=== PATIENT | female | born 2000 | race Hispanic/Latino ===

== ENCOUNTER 2021-05-30 09:02 | Emergency (ER) | payer OTHER ==
[~2021-05-30] VITALS: Ht 157.5 cm; Wt 54.2 kg
[2021-05-30] MEDS ORDERED: ATOM80CA6 PO (09:13)
[2021-05-30 10:40] LABS: RSV AMPLIFICATION NEGATIVE (NEGATIVE)
[2021-05-30] MEDS ORDERED: OSEL75CA PO (11:26)
[2021-05-30 11:32] VITALS: BP 117/69
== END 2021-05-30 11:47 | disposition home or self-care (01) ==
LOC: M ED 09:02
DX: J09.X2 Influenza due to identified novel influenza A virus with other respiratory manifestations (principal)

== ENCOUNTER 2021-07-21 10:00 | Inpatient (IN) | payer OTHER ==
[~2021-07-21] VITALS: Ht 154.9 cm; Wt 52.7 kg
[2021-07-21] MEDS: PRENATAL VITAMINS CHEWABLE TABLET PO SCH (09:00)
[~2021-07-21 10:00] MED LIST: ATOM80CA6 PO; OSEL75CA PO
[2021-07-21 10:46] LABS: BASO # 0.1 10^3/uL (0.0-0.2); BASO % 0.6 % (0.0-1.0); EOS # 0.1 10^3/uL (0.0-0.5); EOS % 0.9 % (0.0-3.0); HEMATOCRIT 39.7 % (36.0-47.0); HEMOGLOBIN 13.3 g/dl (12.0-15.5); LYMPH # 0.9 10^3/uL (1.5-5.0); LYMPH % 11.5 % (24.0-44.0); MEAN CORPUSCULAR HEMOGLOBIN 31.4 pg (27.0-33.0); MEAN CORPUSCULAR HGB CONC 33.5 g/dl (32.0-36.5); MEAN CORPUSCULAR VOLUME 93.6 fl (80.0-96.0); MONO # 0.7 10^3/uL (0.0-0.8); MONO % 9.1 % (2.0-8.0); NEUTROPHILS % 77.5 % (36.0-66.0); PLATELET COUNT, AUTOMATED 238 10^3/uL (150-450); RED BLOOD COUNT 4.24 10^6/uL (4.00-5.40); WHITE BLOOD COUNT 7.7 10^3/uL (4.0-10.0)
[2021-07-21 11:18] LABS: HCG, SERUM QUALITATIVE POSITIVE (NEGATIVE)
[2021-07-21 11:24] LABS: ACETAMINOPHEN LEVEL < 2.0 UG/ML (10.0-30.0); ALBUMIN 3.9 GM/DL (3.2-5.2); ALT/SGPT 36 U/L (12-78); BILIRUBIN,DIRECT 0.1 MG/DL (0.0-0.2); BILIRUBIN,TOTAL 0.4 MG/DL (0.2-1.0); BLOOD UREA NITROGEN 10 MG/DL (7-18); CALCIUM LEVEL 9.1 MG/DL (8.5-10.1); CARBON DIOXIDE LEVEL 24 MEQ/L (21-32); CHLORIDE LEVEL 108 MEQ/L (98-107); CREATININE FOR GFR 0.81 MG/DL (0.55-1.30); ETHYL ALCOHOL (ETHANOL) < 0.003 % (0.000-0.010); GLUCOSE, FASTING 85 MG/DL (70-100); POTASSIUM SERUM 4.2 MEQ/L (3.5-5.1); SALICYLATE LEVEL < 1.7 MG/DL (5.0-30.0); SODIUM LEVEL 137 MEQ/L (136-145); THYROID STIMULATING HORMONE 0.671 uIU/ML (0.463-3.98); TOTAL PROTEIN 7.3 GM/DL (6.4-8.2)
[2021-07-21 12:57] LABS: AMPHETAMINES LEVEL URINE NEGATIVE (NEGATIVE); BARBITURATES URINE NEGATIVE (NEGATIVE); BENZODIAZEPINES URINE NEGATIVE (NEGATIVE); CANNABINOIDS URINE NEGATIVE (NEGATIVE); COCAINE METABOLITE URINE NEGATIVE (NEGATIVE); METHADONE URINE NEGATIVE (NEGATIVE); OPIATES URINE NEGATIVE (NEGATIVE); PHENCYCLIDINE URINE NEGATIVE (NEGATIVE)
[2021-07-21] MEDS ORDERED: NS 1,000 ML IV ONE (13:15)
[2021-07-21 13:59] LABS: HCG, SERUM QUANTITATIVE 3149 MIU/ML
[2021-07-21] MEDS ORDERED: HOME MED LIST COMPLETE! XX SCH (20:25)
[2021-07-21 22:47] VITALS: BP 121/81
[2021-07-22 06:11] VITALS: BP 113/57
[2021-07-22] MEDS: PRENATAL VITAMINS CHEWABLE TABLET PO SCH (09:00)
[2021-07-22 15:59] VITALS: BP 113/68
[2021-07-23 06:33] VITALS: BP 111/56
[2021-07-23] MEDS: PRENATAL VITAMINS CHEWABLE TABLET PO SCH (08:04)
[2021-07-23 16:33] VITALS: BP 128/73
[2021-07-24 06:44] VITALS: BP 110/59
[2021-07-24] MEDS: PRENATAL VITAMINS CHEWABLE TABLET PO SCH (09:34)
[2021-07-24] MEDS ORDERED: PRENCHW PO (12:27)
[2021-07-24 18:27] VITALS: BP 115/61
[2021-07-25 06:46] VITALS: BP 101/60
[2021-07-25] MEDS: PRENATAL VITAMINS CHEWABLE TABLET PO SCH (09:51)
== END 2021-07-25 11:13 | disposition home or self-care (01) | DRG 833 ==
LOC: M ED 10:00 → EDBD 10:00 → M ED INP 10:01 → M PSY 22:28
PROVIDERS: ADMIT Psychiatry & Neurology Psychiatry; ATTEND Psychiatry & Neurology Psychiatry
DX: O99.341 Other mental disorders complicating pregnancy, first trimester (principal); F32.A Depression, unspecified; Z3A.01 Less than 8 weeks gestation of pregnancy; Z63.8 Other specified problems related to primary support group; Z91.410 Personal history of adult physical and sexual abuse; Z91.51 Personal history of suicidal behavior; Z20.822 Contact with and (suspected) exposure to COVID-19

== ENCOUNTER 2021-07-30 02:52 | Inpatient (IN) | payer OTHER ==
[~2021-07-30] VITALS: Ht 157.5 cm; Wt 53.0 kg
[~2021-07-30 02:52] MED LIST changes: +PRENCHW PO
[2021-07-30 03:46] LABS: HEMATOCRIT 37.7 % (36.0-47.0); HEMOGLOBIN 12.1 g/dl (12.0-15.5); MEAN CORPUSCULAR HEMOGLOBIN 30.9 pg (27.0-33.0); MEAN CORPUSCULAR HGB CONC 32.1 g/dl (32.0-36.5); MEAN CORPUSCULAR VOLUME 96.2 fl (80.0-96.0); PLATELET COUNT, AUTOMATED 217 10^3/uL (150-450); RED BLOOD COUNT 3.92 10^6/uL (4.00-5.40)
[2021-07-30 04:34] LABS: AMPHETAMINES LEVEL URINE NEGATIVE (NEGATIVE); BARBITURATES URINE NEGATIVE (NEGATIVE); BENZODIAZEPINES URINE NEGATIVE (NEGATIVE); CANNABINOIDS URINE NEGATIVE (NEGATIVE); COCAINE METABOLITE URINE NEGATIVE (NEGATIVE); METHADONE URINE NEGATIVE (NEGATIVE); OPIATES URINE POSITIVE (NEGATIVE); PHENCYCLIDINE URINE NEGATIVE (NEGATIVE)
[2021-07-30 04:36] LABS: HCG, SERUM QUALITATIVE POSITIVE (NEGATIVE)
[2021-07-30 04:42] LABS: ACETAMINOPHEN LEVEL < 2.0 UG/ML (10.0-30.0); ALBUMIN 3.5 GM/DL (3.2-5.2); ALT/SGPT 53 U/L (12-78); BILIRUBIN,DIRECT < 0.1 MG/DL (0.0-0.2); BILIRUBIN,TOTAL 0.2 MG/DL (0.2-1.0); BLOOD UREA NITROGEN 9 MG/DL (7-18); CALCIUM LEVEL 8.2 MG/DL (8.5-10.1); CARBON DIOXIDE LEVEL 24 MEQ/L (21-32); CHLORIDE LEVEL 109 MEQ/L (98-107); ETHYL ALCOHOL (ETHANOL) < 0.003 % (0.000-0.010); GLUCOSE, FASTING 103 MG/DL (70-100); POTASSIUM SERUM 4.1 MEQ/L (3.5-5.1); SALICYLATE LEVEL < 1.7 MG/DL (5.0-30.0); SODIUM LEVEL 140 MEQ/L (136-145); TOTAL PROTEIN 6.8 GM/DL (6.4-8.2)
[2021-07-30 05:23] LABS: HCG, SERUM QUANTITATIVE 5379 MIU/ML
[2021-07-30 12:56] LABS: RSV AMPLIFICATION NEGATIVE (NEGATIVE)
[2021-07-30] MEDS ORDERED: IBUP80TA PO (18:12)
[2021-07-30] MEDS ORDERED: ACET1TAB16 PO (18:12)
[2021-07-30] MEDS ORDERED: ISIB1TAB PO (18:13)
[2021-07-30] MEDS ORDERED: ONDA-83 PO (18:13)
[2021-07-30] MEDS ORDERED: HOME MED LIST COMPLETE! XX SCH (18:15)
[2021-07-31] MEDS ORDERED: IBUPROFEN 600MG TAB PO ONE (12:35)
[2021-07-31] MEDS ORDERED: MOM 30ML SUSPENSION UDC PO PRN (14:15)
[2021-07-31] MEDS ORDERED: hydrOXYzine 25 MG TAB PO PRN (14:15)
[2021-07-31] MEDS ORDERED: MAALOX 30 ML SUSP *UDC PO PRN (14:15)
[2021-07-31] MEDS: traZODone 50 MG TAB PO PRN (22:31)
[2021-07-31] MEDS: ACETAMINOPHEN TAB 650MG DOSE (2X325MG) PO PRN (22:37)
[2021-08-01 06:17] VITALS: BP 118/60
[2021-08-01 16:10] VITALS: BP 116/68
[2021-08-02 06:41] VITALS: BP 119/62
[2021-08-02 16:38] VITALS: BP 111/66
[2021-08-02] MEDS: traZODone 50 MG TAB PO PRN (21:40)
[2021-08-02] MEDS: ACETAMINOPHEN TAB 650MG DOSE (2X325MG) PO PRN (21:40)
[2021-08-03 07:02] VITALS: BP 103/61
== END 2021-08-03 13:01 | disposition home or self-care (01) | DRG 882 ==
LOC: M ED 02:52 → M ED INP 07-31 14:14 → M PSY 07-31 16:50
PROVIDERS: ADMIT Psychiatry & Neurology Psychiatry; ATTEND Psychiatry & Neurology Psychiatry
DX: F43.25 Adjustment disorder with mixed disturbance of emotions and conduct (principal); Z79.899 Other long term (current) drug therapy; Z91.51 Personal history of suicidal behavior

== ENCOUNTER 2022-01-16 14:46 | Inpatient (IN) | payer OTHER ==
[~2022-01-16] VITALS: Ht 157.5 cm; Wt 54.5 kg
[~2022-01-16 14:46] MED LIST changes: +ACET300T48 PO; +IBUP80TA PO; +ISIB1TAB PO; +ONDA-83 PO
[2022-01-16] MEDS ORDERED: KETOROLAC 30 MG/ML 1ML VIAL IV ONE (18:00)
[2022-01-16] MEDS ORDERED: NS 1,000 ML IV ONE (18:00)
[2022-01-16 18:25] LABS: BASO # 0.1 10^3/uL (0.0-0.2); BASO % 0.9 % (0.0-1.0); EOS # 0.3 10^3/uL (0.0-0.5); HEMATOCRIT 42.4 % (36.0-47.0); HEMOGLOBIN 13.9 g/dl (12.0-15.5); LYMPH # 3.2 10^3/uL (1.5-5.0); LYMPH % 49.1 % (24.0-44.0); MEAN CORPUSCULAR HEMOGLOBIN 30.5 pg (27.0-33.0); MEAN CORPUSCULAR HGB CONC 32.8 g/dl (32.0-36.5); MEAN CORPUSCULAR VOLUME 93.2 fl (80.0-96.0); MONO # 0.8 10^3/uL (0.0-0.8); MONO % 11.8 % (2.0-8.0); NEUTROPHILS # 2.2 10^3/uL (1.5-8.5); NEUTROPHILS % 33.9 % (36.0-66.0); PLATELET COUNT, AUTOMATED 298 10^3/uL (150-450); RED BLOOD COUNT 4.55 10^6/uL (4.00-5.40); WHITE BLOOD COUNT 6.4 10^3/uL (4.0-10.0)
[2022-01-16 18:42] LABS: AMORPHOUS SEDIMENT SMALL (NEGATIVE); APPEARANCE, URINE CLOUDY (CLEAR); BACTERIA, URINE AUTO NEGATIVE (NEGATIVE); BILIRUBIN, URINE AUTO NEGATIVE (NEGATIVE); BLOOD, URINE BLOOD 2+ (NEGATIVE); COLOR, URINE YELLOW (YELLOW); GLUCOSE, URINE (UA) AUTO NEGATIVE (NEGATIVE); KETONE, URINE AUTO NEGATIVE (NEGATIVE); LEUKOCYTE ESTERASE, URINE AUTO NEGATIVE (NEGATIVE); MUCUS, URINE SMALL (NEGATIVE); NITRITE, URINE AUTO NEGATIVE (NEGATIVE); PROTEIN, URINE AUTO 1+ mg/dL (NEGATIVE); RBC, URINE AUTO 3 /HPF (0-3); SPECIFIC GRAVITY URINE AUTO 1.025 (1.002-1.035); SQUAMOUS EPITHELIAL CELL UR AU 2 /HPF (0-6); WBC, URINE AUTO 2 /HPF (0-3)
[2022-01-16 18:45] LABS: BLOOD UREA NITROGEN 11 MG/DL (7-18); CALCIUM LEVEL 9.2 MG/DL (8.5-10.1); CARBON DIOXIDE LEVEL 26 MEQ/L (21-32); CHLORIDE LEVEL 109 MEQ/L (98-107); CREATININE FOR GFR 0.87 MG/DL (0.55-1.30); GLUCOSE, FASTING 81 MG/DL (70-100); MAGNESIUM LEVEL 2.5 MG/DL (1.8-2.4); POTASSIUM SERUM 3.7 MEQ/L (3.5-5.1); SODIUM LEVEL 142 MEQ/L (136-145)
[2022-01-16] MEDS ORDERED: NS 500 ML IV ONE (20:10)
[2022-01-16] MEDS ORDERED: DEPO150I12 IM (20:46)
[2022-01-16] MEDS ORDERED: VITA500T41 PO (20:49)
[2022-01-16] MEDS ORDERED: OYST1TAB PO (20:49)
[2022-01-16] MEDS ORDERED: CALC500C16 PO (20:49)
[2022-01-16] MEDS ORDERED: GUMMCHW PO (20:49)
[2022-01-16] MEDS ORDERED: CHOL125C6 PO (20:49)
[2022-01-16] MEDS ORDERED: FERR325T3 PO (20:50)
[2022-01-16] MEDS ORDERED: HOME MED LIST COMPLETE! XX SCH (20:50)
[2022-01-16] MEDS ORDERED: HYDROMORPHONE HCL 0.5 MG/ 0.5 ML SYRINGE (J1170 PER 1) IV PRN (22:20)
[2022-01-17 00:03] LABS: RSV AMPLIFICATION NEGATIVE (NEGATIVE)
[2022-01-17] MEDS: NS 1,000 ML IV SCH ×5 (01:14→22:59)
[2022-01-17 02:10] VITALS: BP 99/58
[2022-01-17] MEDS: HEPARIN SOD (PORCINE) 5000UNITS/ML 1ML VIAL/SYRINGE SC SCH ×3 (05:44→21:00)
[2022-01-17 06:00] VITALS: BP 99/53
[2022-01-17 07:12] LABS: BLOOD UREA NITROGEN 11 MG/DL (7-18); CALCIUM LEVEL 8.1 MG/DL (8.5-10.1); CARBON DIOXIDE LEVEL 22 MEQ/L (21-32); CHLORIDE LEVEL 114 MEQ/L (98-107); CREATININE FOR GFR 0.72 MG/DL (0.55-1.30); GLUCOSE, FASTING 90 MG/DL (70-100); MAGNESIUM LEVEL 2.1 MG/DL (1.8-2.4); PHOSPHORUS LEVEL 3.8 MG/DL (2.5-4.9); POTASSIUM SERUM 3.9 MEQ/L (3.5-5.1); SODIUM LEVEL 143 MEQ/L (136-145)
[2022-01-17] MEDS: ACETAMINOPHEN TAB 650MG DOSE (2X325MG) PO PRN (09:12)
[2022-01-17] MEDS: MORPHINE 2 MG/ML 1ML VIAL IV PRN ×2 (12:36→18:26)
[2022-01-17] MEDS: metroNIDAZOLE (FLAGYL) 500MG TABLET PO SCH ×2 (12:37→21:00)
[2022-01-17 14:00] VITALS: BP 109/61
[2022-01-17 21:02] VITALS: BP 104/65
[2022-01-18] MEDS: NS 1,000 ML IV SCH ×4 (04:08→20:39)
[2022-01-18 05:30] VITALS: BP 102/58
[2022-01-18] MEDS: HEPARIN SOD (PORCINE) 5000UNITS/ML 1ML VIAL/SYRINGE SC SCH ×3 (05:45→21:19)
[2022-01-18] MEDS: MORPHINE 2 MG/ML 1ML VIAL IV PRN ×3 (05:49→21:19)
[2022-01-18 07:24] LABS: BLOOD UREA NITROGEN 9 MG/DL (7-18); CALCIUM LEVEL 8.5 MG/DL (8.5-10.1); CARBON DIOXIDE LEVEL 25 MEQ/L (21-32); CHLORIDE LEVEL 111 MEQ/L (98-107); GLUCOSE, FASTING 89 MG/DL (70-100); POTASSIUM SERUM 3.8 MEQ/L (3.5-5.1); SODIUM LEVEL 141 MEQ/L (136-145)
[2022-01-18] MEDS ORDERED: NS 1,000 ML IV SCH (07:50)
[2022-01-18 08:40] LABS: PHOSPHORUS LEVEL 3.3 MG/DL (2.5-4.9)
[2022-01-18] MEDS: metroNIDAZOLE (FLAGYL) 500MG TABLET PO SCH ×2 (09:20→20:39)
[2022-01-18] MEDS: ACETAMINOPHEN TAB 650MG DOSE (2X325MG) PO PRN (09:21)
[2022-01-18 14:00] VITALS: BP 108/60
[2022-01-18 21:45] VITALS: BP 115/64
[2022-01-19] MEDS: NS 1,000 ML IV SCH ×6 (01:47→18:46)
[2022-01-19 06:00] VITALS: BP 112/64
[2022-01-19] MEDS: HEPARIN SOD (PORCINE) 5000UNITS/ML 1ML VIAL/SYRINGE SC SCH ×3 (06:55→20:29)
[2022-01-19 07:37] LABS: BLOOD UREA NITROGEN 8 MG/DL (7-18); CALCIUM LEVEL 8.6 MG/DL (8.5-10.1); CARBON DIOXIDE LEVEL 25 MEQ/L (21-32); CHLORIDE LEVEL 110 MEQ/L (98-107); GLUCOSE, FASTING 90 MG/DL (70-100); PHOSPHORUS LEVEL 3.6 MG/DL (2.5-4.9); POTASSIUM SERUM 3.8 MEQ/L (3.5-5.1); SODIUM LEVEL 141 MEQ/L (136-145)
[2022-01-19] MEDS: metroNIDAZOLE (FLAGYL) 500MG TABLET PO SCH ×2 (08:04→20:29)
[2022-01-19] MEDS: ACETAMINOPHEN TAB 650MG DOSE (2X325MG) PO PRN (13:47)
[2022-01-19 14:00] VITALS: BP_SYST 114; BP_SYST 126; BP_DIAS 66; BP_DIAS 71
[2022-01-19 20:50] VITALS: BP 115/56
[2022-01-20] MEDS: NS 1,000 ML IV SCH ×2 (01:23→04:52)
[2022-01-20 06:00] VITALS: BP 107/70
[2022-01-20] MEDS: HEPARIN SOD (PORCINE) 5000UNITS/ML 1ML VIAL/SYRINGE SC SCH ×2 (06:00→14:00)
[2022-01-20 07:20] LABS: BLOOD UREA NITROGEN 8 MG/DL (7-18); CALCIUM LEVEL 8.8 MG/DL (8.5-10.1); CARBON DIOXIDE LEVEL 25 MEQ/L (21-32); CHLORIDE LEVEL 110 MEQ/L (98-107); CREATININE FOR GFR 0.71 MG/DL (0.55-1.30); GLUCOSE, FASTING 99 MG/DL (70-100); MAGNESIUM LEVEL 1.9 MG/DL (1.8-2.4); PHOSPHORUS LEVEL 4.2 MG/DL (2.5-4.9); POTASSIUM SERUM 4.3 MEQ/L (3.5-5.1); SODIUM LEVEL 141 MEQ/L (136-145)
[2022-01-20] MEDS: metroNIDAZOLE (FLAGYL) 500MG TABLET PO SCH (07:54)
[2022-01-20] MEDS ORDERED: ONDANSETRON 4MG TAB PO PRN (10:30)
[2022-01-20] MEDS ORDERED: METR-265 PO ×2 (11:55→18:17)
[2022-01-20 14:00] VITALS: BP 102/51
[2022-01-20] MEDS ORDERED: ONDANSETRON 4MG TAB PO SCH (14:00)
[2022-01-20] MEDS ORDERED: SODIUM CHLORIDE 0.9% 1000ML IV ONE (17:15)
== END 2022-01-20 19:00 | disposition home or self-care (01) | DRG 558 ==
LOC: M ED 14:46 → M ED INP 22:18 → ENRESERV 01-17 00:30 → M MSPAV 01-17 02:06
PROVIDERS: ADMIT Internal Medicine; ATTEND Internal Medicine
DX: M62.82 Rhabdomyolysis (principal); N76.0 Acute vaginitis

== ENCOUNTER 2022-02-20 15:03 | Emergency (ER) | payer OTHER ==
[~2022-02-20] VITALS: Ht 157.5 cm; Wt 58.0 kg
[~2022-02-20 15:03] MED LIST changes: +CALC500C16 PO; +CHOL125C6 PO; +DEPO150I12 IM; +FERR325T3 PO; +GUMMCHW PO; +METR-265 PO; +OYST1TAB PO; +VITA500T41 PO
[2022-02-20 18:52] VITALS: BP 124/74
== END 2022-02-20 19:25 | disposition home or self-care (01) ==
LOC: M ED 15:03
DX: F43.10 Post-traumatic stress disorder, unspecified (principal)

== ENCOUNTER 2023-01-08 17:24 | Inpatient (IN) | payer OTHER ==
[~2023-01-08] VITALS: Ht 157.5 cm; Wt 59.1 kg
[2023-01-08 18:13] LABS: HEMOGLOBIN 12.8 g/dl (12.0-15.5); MEAN CORPUSCULAR HEMOGLOBIN 31.4 pg (27.0-33.0); MEAN CORPUSCULAR HGB CONC 32.8 g/dl (32.0-36.5); MEAN CORPUSCULAR VOLUME 95.8 fl (80.0-96.0); PLATELET COUNT, AUTOMATED 249 10^3/uL (150-450); RED BLOOD COUNT 4.07 10^6/uL (4.00-5.40); WHITE BLOOD COUNT 6.1 10^3/uL (4.0-10.0)
[2023-01-08 18:38] LABS: AMPHETAMINES LEVEL URINE NEGATIVE (NEGATIVE); BARBITURATES URINE NEGATIVE (NEGATIVE); COCAINE METABOLITE URINE NEGATIVE (NEGATIVE)
[2023-01-08 18:39] LABS: BENZODIAZEPINES URINE NEGATIVE (NEGATIVE); CANNABINOIDS URINE NEGATIVE (NEGATIVE); METHADONE URINE NEGATIVE (NEGATIVE); OPIATES URINE NEGATIVE (NEGATIVE); PHENCYCLIDINE URINE NEGATIVE (NEGATIVE)
[2023-01-08 18:41] LABS: ETHYL ALCOHOL (ETHANOL) < 0.003 % (0.000-0.010)
[2023-01-08 18:42] LABS: ACETAMINOPHEN LEVEL < 2.0 UG/ML (10.0-20.0); SALICYLATE LEVEL < 3.0 MG/DL (<30)
[2023-01-08 18:43] LABS: ALBUMIN 4.5 G/DL (3.2-5.2); ALKALINE PHOSPHATASE 103 U/L (46-116); ALT/SGPT 24 U/L (7.0-40); AST/SGOT 17 U/L (<34); BILIRUBIN,DIRECT 0.1 MG/DL (<0.4); BILIRUBIN,TOTAL 0.5 MG/DL (0.3-1.2); BLOOD UREA NITROGEN 9 MG/DL (9-23); CALCIUM LEVEL 9.4 MG/DL (8.5-10.1); CARBON DIOXIDE LEVEL 25 MMOL/L (20-31); CHLORIDE LEVEL 103 MMOL/L (98-107); CREATININE FOR GFR 0.65 MG/DL (0.55-1.30); GLOMERULAR FILTRATION RATE > 60.0 (>60); GLUCOSE, FASTING 84 MG/DL (60-100); SODIUM LEVEL 140 MMOL/L (136-145); TOTAL PROTEIN 7.7 G/DL (5.7-8.2)
[2023-01-08 19:02] LABS: HCG, SERUM QUALITATIVE NEGATIVE (NEGATIVE)
[2023-01-08 19:32] LABS: THYROID STIMULATING HORMONE 0.752 uIU/ML (0.55-4.78)
[2023-01-08] MEDS ORDERED: ACETAMINOPHEN TAB 650MG DOSE (2X325MG) PO ONE (21:10)
[2023-01-09] MEDS ORDERED: MOM 30ML SUSPENSION UDC PO PRN (00:50)
[2023-01-09] MEDS ORDERED: IBUPROFEN 400MG TAB PO PRN (00:50)
[2023-01-09] MEDS ORDERED: MAALOX 30 ML SUSP *UDC PO PRN (00:50)
[2023-01-09] MEDS ORDERED: ACETAMINOPHEN TAB 650MG DOSE (2X325MG) PO PRN (00:50)
[2023-01-09] MEDS ORDERED: diphenhydrAMINE 25MG CAP PO PRN (00:50)
[2023-01-09] MEDS ORDERED: traZODone 50 MG TAB PO PRN (00:50)
[2023-01-09] MEDS ORDERED: MED REC IN PROGRESS XX SCH (08:20)
[2023-01-09] MEDS ORDERED: HOME MED LIST COMPLETE! XX SCH (08:30)
[2023-01-09 09:34] VITALS: BP 111/68; TEMP 97.5; O2SAT 98
[2023-01-09 17:54] VITALS: BP 104/56; TEMP 98.3; O2SAT 98
[2023-01-10 07:07] VITALS: BP 96/53; TEMP 97.2; O2SAT 99
[2023-01-10] MEDS: VENLAFAXINE **XR** 37.5 MG CAPSULE PO SCH (10:26)
[2023-01-10] MEDS: MULTIVITAMINS/MINERALS THERAP 1 TAB PO SCH (11:51)
[2023-01-10] MEDS: FOLIC ACID 1MG TAB PO SCH (11:51)
[2023-01-10] MEDS: THIAMINE 100 MG TAB PO SCH ×2 (11:51→21:00)
[2023-01-10 14:30] VITALS: BP 112/55; TEMP 97; O2SAT 99
[2023-01-10] MEDS: ONDANSETRON 4MG TAB PO SCH ×2 (17:26→22:00)
[2023-01-10] MEDS: RAMELTEON 8 MG TAB (ROZEREM) PO SCH (23:06)
[2023-01-11] MEDS: ONDANSETRON 4MG TAB PO SCH ×3 (06:00→22:00)
[2023-01-11 06:45] VITALS: BP 106/57; TEMP 97.3; O2SAT 98
[2023-01-11] MEDS: THIAMINE 100 MG TAB PO SCH ×2 (08:43→22:47)
[2023-01-11] MEDS: FOLIC ACID 1MG TAB PO SCH (08:43)
[2023-01-11] MEDS: MULTIVITAMINS/MINERALS THERAP 1 TAB PO SCH (08:43)
[2023-01-11] MEDS: VENLAFAXINE **XR** 37.5 MG CAPSULE PO SCH (08:43)
[2023-01-11 18:07] VITALS: BP 103/59; TEMP 97.8
[2023-01-11 22:12] VITALS: BP 117/61
[2023-01-11] MEDS: RAMELTEON 8 MG TAB (ROZEREM) PO SCH (22:47)
[2023-01-12] MEDS: ONDANSETRON 4MG TAB PO SCH ×3 (05:06→23:21)
[2023-01-12 06:23] VITALS: BP 105/52; TEMP 97; O2SAT 100
[2023-01-12] MEDS: VENLAFAXINE **XR** 37.5 MG CAPSULE PO SCH (08:27)
[2023-01-12] MEDS: MULTIVITAMINS/MINERALS THERAP 1 TAB PO SCH (08:27)
[2023-01-12] MEDS: THIAMINE 100 MG TAB PO SCH (08:27)
[2023-01-12] MEDS: FOLIC ACID 1MG TAB PO SCH (08:27)
[2023-01-12 18:00] VITALS: BP 96/53; TEMP 98; O2SAT 98
[2023-01-12] MEDS: RAMELTEON 8 MG TAB (ROZEREM) PO SCH (23:21)
[2023-01-13] MEDS: ONDANSETRON 4MG TAB PO SCH (05:02)
[2023-01-13 06:21] VITALS: BP 108/72; TEMP 98.2; O2SAT 98
[2023-01-13] MEDS: VENLAFAXINE **XR** 37.5 MG CAPSULE PO SCH (09:21)
[2023-01-13] MEDS: MULTIVITAMINS/MINERALS THERAP 1 TAB PO SCH (09:21)
[2023-01-13] MEDS: FOLIC ACID 1MG TAB PO SCH (09:21)
[2023-01-13] MEDS ORDERED: ONDANSETRON 4MG TAB PO PRN (13:20)
[2023-01-13 18:00] VITALS: BP 112/73; TEMP 98; O2SAT 99
[2023-01-13] MEDS: RAMELTEON 8 MG TAB (ROZEREM) PO SCH (21:59)
[2023-01-14 05:54] VITALS: BP 109/58; TEMP 98.7; O2SAT 96
[2023-01-14] MEDS ORDERED: RAME8TAB2 PO (08:27)
[2023-01-14] MEDS ORDERED: VENL37.598 PO (08:27)
[2023-01-14] MEDS: MULTIVITAMINS/MINERALS THERAP 1 TAB PO SCH (08:56)
[2023-01-14] MEDS: FOLIC ACID 1MG TAB PO SCH (08:56)
[2023-01-14] MEDS: VENLAFAXINE **XR** 37.5 MG CAPSULE PO SCH (08:56)
== END 2023-01-14 11:32 | disposition home or self-care (01) | DRG 882 ==
LOC: M ED 17:24 → M ED INP 01-09 00:46 → M PSY 01-09 09:25
PROVIDERS: ADMIT Student in an Organized Health Care Education/Training Program; ATTEND Student in an Organized Health Care Education/Training Program
DX: F43.10 Post-traumatic stress disorder, unspecified (principal); R45.851 Suicidal ideations; F32.89 Other specified depressive episodes; F41.8 Other specified anxiety disorders; F16.10 Hallucinogen abuse, uncomplicated; Z91.51 Personal history of suicidal behavior; Z91.410 Personal history of adult physical and sexual abuse; F10.10 Alcohol abuse, uncomplicated